=== PATIENT | female | born 1980 | race Caucasian/White ===

== ENCOUNTER 2020-05-09 12:36 | Emergency (ER) | payer SELFPAY ==
[~2020-05-09] VITALS: Ht 152.4 cm; Wt 68.0 kg
[2020-05-09 12:39] VITALS: Ht 152.4 cm; Wt 68.0 kg
[2020-05-09 13:33] VITALS: BP 169/93
== END 2020-05-09 13:33 | disposition home or self-care (01) ==
LOC: ED 12:36
DX: B34.9 Viral infection, unspecified (principal); Z20.828 Contact with and (suspected) exposure to other viral communicable diseases
CPT/HCPCS: U0003

== ENCOUNTER 2020-05-13 22:27 | Emergency (ER) | payer OTHER, SELFPAY ==
[~2020-05-13] VITALS: Ht 152.4 cm; Wt 68.0 kg
[2020-05-13 22:34] VITALS: Ht 152.4 cm; Wt 68.0 kg
[2020-05-13 23:52] VITALS: BP 176/108
== END 2020-05-13 23:52 | disposition home or self-care (01) ==
LOC: ED 22:27
DX: B34.9 Viral infection, unspecified (principal); Z20.828 Contact with and (suspected) exposure to other viral communicable diseases